=== PATIENT | male | born 1990 | race Two or more races ===

== ENCOUNTER 2017-06-12 14:51 | Emergency (ER) | payer SELFPAY ==
[~2017-06-12] VITALS: Ht 177.8 cm; Wt 83.9 kg
[2017-06-12 14:51] VITALS: BP 126/76
[2017-06-12] MEDS ORDERED: DEXAMETHASONE SOD PHOSPHATE 10 MG/ML VIAL ONE (17:15)
[2017-06-12] MEDS ORDERED: DEXAMETHASONE SOD PHOSPHATE 4 MG/ML VIAL MC ONE (17:30)
== END 2017-06-12 17:24 | disposition home or self-care (01) ==
LOC: ER 14:56
DX: K04.7 Periapical abscess without sinus (principal); F17.200 Nicotine dependence, unspecified, uncomplicated
CPT/HCPCS: 99283; 99406; A4606; J1100; Z7610